=== PATIENT | male | born 1990 | race Caucasian/White ===

== ENCOUNTER 2025-11-09 19:04 | Emergency (ER) | payer OTHER, SELFPAY ==
[2025-11-09 19:05] VITALS: BP 165/105
--- NOTE | 2025-11-09 19:21 | ED.GENMED ---
History of Present Illness
General
Chief Complaint: Abdominal Pain
Source: patient
Exam Limitations: none
Time Seen by Provider: 11/09/25 19:11
Nursing documentation reviewed up to this point in time: agreed with
History of Present Illness
History of Present Illness:
Patient is a healthy 35-year-old male who presents to the emergency department with pain in right lower abdomen. He describes intermittent discomfort over the past few weeks however worsening over the past few days. He describes a sharp pain
mainly located in his right lower abdomen worse with certain movements/exertional activities. He states that he has had a decreased appetite since symptoms started approximately 2 weeks ago. He also describes intermittent episodes of nausea and
vomiting. He apparently had a low-grade fever at home of 100.4 F and an episode of diarrhea today. He denies any dysuria or hematuria. No back pain. No chest pain, shortness of breath, or productive cough.
No history of similar symptoms
Past History
Past History
ED Past Medical History: Asthma
ED Past Surgical History: Orthopedic
Social History
Tobacco: Smoker
Personal: Single
Living: with family
Employment: Employed
Family History
Family History: Other
Review of Systems
Review of Systems
Allergies reviewed?: Yes
All Other Systems: ROS reviewed and negative except as documented in HPI and ROS
Phy Exam
Physical Exam
Physical Exam:
Vitals: Hypertensive, otherwise stable. Afebrile
General: Patient is well appearing, no acute distress. Nontoxic appearing
Skin: Warm and dry, no rashes or lesions
Head: Normocephalic, atraumatic
Eyes: Sclera nonicteric.
Throat: Protecting airway
Neck: Normal ROM, no cervical spine tenderness, no meningismus
Cardiac: Regular rate and rhythm, no murmurs.
Pulm: Normal respiratory effort. Lungs clear bilaterally
Abdomen: Abdomen soft. Reproducible tenderness in right lower quadrant along with mild tenderness in left lower quadrant. No rebound or guarding.
Extremities: No evidence of cyanosis or edema
Neuro: AAOx3. Grossly intact.
Psychiatric: Normal affect.
Course
Orders/Labs/Results
Orders:
Orders
11/09/25 19:20
CT Abd/pelvis W Iv Cont Urgent
Comment:
Reason For Exam: RLQ pain
0.9% Sodium Chloride 1000 ml [Nss] 1,000 ml IV BOLUS
Ketorolac [Toradol] 15 mg IV NOW STA
Ondansetron Injectable [Zofran] 4 mg IV NOW STA
11/09/25 19:34
Basic Metabolic Panel Urgent
Complete Blood Count/With Diff Urgent
Lipase Urgent
Influenza A+B Rapid Molecular Urgent
ELOISA Source: Nasal Swab
Specimen Description:
11/09/25 22:02
Urinalysis Reflex To Culture Urgent
Date Specimen was Collected: 11/09/25
Time Specimen was Collected: 22:00
Urine Microscopic Reflex Cult Urgent
Abnormal Lab Results
11/09/25 11/09/25
19:34 22:02
MCH 31.5 H pg
(27.0-31.0)
Glucose 107 H mg/dl
(70-99)
Urine Ketones 2+ A
(Negative)
Urine Albumin (Reflex) 2+ A
(Neg - Trace)
11/09/25 19:34
11/09/25 19:34
Vital Signs
Initial and Last Documented VS:
Initial Vital Signs
Temp Pulse Resp BP Pulse Ox
98.3 F 91 14 165/105 95
11/09/25 19:05 11/09/25 19:05 11/09/25 19:05 11/09/25 19:05 11/09/25 19:05
Last Documented Vital Signs
Temp Pulse Resp BP Pulse Ox
98.3 F 72 16 146/98 97
11/09/25 19:05 11/09/25 22:34 11/09/25 22:34 11/09/25 22:34 11/09/25 22:34
MDM/Problems Addressed
Differential Diagnosis Includes:
Limited to: Viral gastroenteritis, colitis, constipation, muscular strain, appendicitis, diverticulitis, cystitis, renal colic, etc.
MDM/Problems Addressed:
36-year-old male with two weeks of intermittent right lower abdominal pain. Pain exacerbated with certain movements. Also reports intermittent nausea/vomiting. No urinary symptoms. No known sick contacts.
Vitals and physical exam as above.�
Differential includes musculoskeletal pain, viral illness. Less likely acute intra-abdominal infectious process, such as appendicitis given duration of symptoms, however, would be on differential.
Will check labs, UA, CT scan abdomen/pelvis. Will treat symptoms, give IV fluids, and reassess.�
Update: labs without acute findings. UA shows no evidence of infection or RBCs.
CT scan shows no acute abnormality of abdomen/pelvis.�
On reassessment � patient is laying in bed, giggling with his sister. He does not appear and in any acute distress. He has not had any episodes of vomiting and is now tolerating oral intake.�
Work up in ED unremarkable and ultimately feel stable for discharge home with continued supportive care and primary care follow-up. Strict return precautions discussed. Patient comfortable with plan.
Chronic conditions affecting care:
N/A
Acute Exacerbation and/or Progression of Chronic Illness:
N/A
*Radiology
Radiology exam reviewed: radiology read reviewed
*Pulse Oximetry
SaO2: 95
Oxygen Mode of Delivery: Room air
Patient hypoxic: no
*EKG
Interpreted by ED Provider?: NA
*Brickmason Interpretation
Rate: Brickmason- N/A
*Critical Care Note
Total Time (30-74mins, 75-104mins- exclusive of procedures): Not Applicable
ED Attending Note
-
Portions of this chart may have been created with voice recognition software.� Occasional wrong word or��sound alike� substitutions may have occurred due to the inherent limitations of voice recognition software.
Discharge Plan
Departure
Patient Disposition: Home (Routine Discharge)
Date of Disposition: 11/09/25
Time of Disposition: 22:22
Patient with high blood pressure during this ER visit?: Yes
Condition: Good
Discharge Problem:
Abdominal pain
Instructions: Abdominal Pain, BLOOD PRESSURE
Prescriptions:
No Action
fluticasone propionate 1 SPRAY spray,suspension
2 spray intranasal DAILY Qty: 1 0RF
Rx Instructions:
2 sprays in each nostril daily
cetirizine 10 MG tablet
10 mg PO DAILY Qty: 30 0RF
methylprednisolone [Medrol (Familia)] 4 MG tablets,dose pack
4 tab PO . DIRECT Qty: 1 0RF
sertraline 20 MG/ML concentrate
25 mg PO DAILY Qty: 20 0RF
Referrals:
Yamil Lopez MD [Family Provider, Family Practice] - Follow up in 5-7 days
Activity Restrictions/Additional Instructions:
RETURN TO THE EMERGENCY DEPARTMENT ANY FEVER, PERSISTENT/WORSENING ABDOMINAL PAIN, INTRACTABLE VOMITING, URINARY SYMPTOMS, WORSENING IN CHRONIC SYMPTOMS, OR ANY OTHER CONCERNS
- As discussed your lab work and urinalysis showed no acute abnormalities today in the emergency department. Your CT scan did not show any acute findings.
- Please follow a bland diet over the next 2 days and slowly advance as tolerated. You can continue to take Tylenol and/or Motrin as needed for pain. It is important to stay well-hydrated
- Follow-up with primary care for further evaluation/management to ensure that your symptoms are improving
Monitor your symptoms closely and return to the emergency department with any acute worsening/new symptoms or any other concerns
Interventions
Interventions:
*General Assessment Last Done: 11/09/25 19:05
*Neglect/Abuse Screening Last Done: 11/09/25 19:05
*ED COVID-19 Vaccine History Last Done: 11/09/25 19:25
*ED Influenza Vaccine History Last Done: 11/09/25 19:25
[facility] Risk Assessment Tool Last Done: 11/09/25 19:53
*Risk Screen - Suicide (C-SSRS) Last Done: 11/09/25 19:07
*Nursing Disposition Last Done: 11/09/25 22:39
YR-Inbfok-Wmlqaraucg Assessment Last Done: 11/09/25 19:53
Discharge Date and Time
Discharge Date/Time: 11/09/25 22:39
Print Language: ANDORRAN
[2025-11-09 19:25] VITALS: BMI 40.5
[2025-11-09] MEDS: TORADOL 15 MG IV (19:33)
[2025-11-09] MEDS: ZOFRAN 4 MG IV (19:33)
[2025-11-09] MEDS: NSS 1000 IV (19:33)
[2025-11-09 19:42] LABS: Hematocrit 41.1 % (39.0-52.0); Hemoglobin 15.2 g/dL (13.0-18.0); Mean Corp Hgb Conc. 37.0 g/dL (33.0-37.0); Mean Corpuscular Volume 85.1 fL (80.0-94.0); Nucleated Red Blood Cells % 0 % (-); Platelet Count 289 10^3/uL (130-400); Red Cell Dist. Width 11.9 % (11.5-14.5)
[2025-11-09 20:05] LABS: Blood Urea Nitrogen 11 mg/dl (9-20); Calcium 9.5 mg/dl (8.4-10.2); Carbon Dioxide 24 mmol/L (22-30); Chloride 103 mmol/L (98-107); Estimated Creatinine Clearance > 125 ml/min; Glucose 107 mg/dl (70-99); Lipase 41 U/L (23-300); Sodium 135 mmol/L (135-145); eGFR > 60.00
[2025-11-09 22:08] LABS: Urine Character Clear (Clear)
[2025-11-09 22:10] LABS: Urine Red Blood Cell 0-2 /HPF (0-2); Urine White Cell 0-2 /HPF (0-5)
[2025-11-09 22:34] VITALS: BP 146/98
== END 2025-11-09 22:39 | disposition home or self-care (01) ==
LOC: EMR 19:04
PROVIDERS: Physician Assistant; EMERGENCY PHYSICIAN Emergency Medicine; FAMILY PHYSICIAN Family Medicine
DX: R10.9 Unspecified abdominal pain (principal); R11.2 Nausea with vomiting, unspecified; J45.909 Unspecified asthma, uncomplicated; F17.200 Nicotine dependence, unspecified, uncomplicated
CPT/HCPCS: 99284; 96374; 96375; 74177; 80048; 81003; 81015; 83690; 85025; 87502; Q9967